=== PATIENT | male | born 1980 | race Caucasian/White ===

== ENCOUNTER → 2017-07-02 | Outpatient (CLI) | payer MEDICAID | LOC: COL.PUL 09:28 | DX: J45.909 Unspecified asthma, uncomplicated (principal) ==

== ENCOUNTER 2017-12-16 19:12 | Emergency (ER) | payer MEDICAID ==
[~2017-12-16] VITALS: Ht 170.2 cm; Wt 77.3 kg
[2017-12-16 19:15] VITALS: BP 126/71
[2017-12-16 20:24] VITALS: PULSE 85; TEMP 100.5
== END 2017-12-16 20:24 | disposition home or self-care (01) ==
LOC: COL.ER 19:12
DX: J03.00 Acute streptococcal tonsillitis, unspecified (principal)
CPT/HCPCS: J0561

== ENCOUNTER → 2019-05-14 | Outpatient (CLI) | payer MEDICAID | LOC: COL.RAD 08:40 | DX: S83.241A Other tear of medial meniscus, current injury, right knee, initial encounter (principal) ==